=== PATIENT | female | born 1995 | race African-American/Black ===

== ENCOUNTER 2018-03-08 08:18 | Emergency (ER) | payer SELFPAY ==
[~2018-03-08] VITALS: Ht 165.1 cm; Wt 60.9 kg
[2018-03-08 08:21] VITALS: Ht 165.1 cm; Wt 60.9 kg
[2018-03-08] MEDS ORDERED: VOLTAREN75 MG PO (08:45)
[2018-03-08] MEDS ORDERED: AMOXIL875 MG PO (08:45)
[2018-03-08 09:24] VITALS: BP 111/56
== END 2018-03-08 09:28 | disposition home or self-care (01) ==
LOC: D.ER 08:18
DX: K02.9 Dental caries, unspecified (principal); K08.89 Other specified disorders of teeth and supporting structures